=== PATIENT | female | born 1945 | race Two or more races ===

== ENCOUNTER → 2017-06-02 | Outpatient (CLI) | payer MEDICARE ==
[~2017-06-02] MED LIST: ALLOPURINOL300 MG PO; ATORVASTATIN CA10 MG PO; COREG25 MG PO; COREG3.125 MG PO; DIGOXIN125 MCG PO; DIGOXIN250 MCG PO; DIOVAN320 MG PO; FUROSEMIDE40 MG PO; LANTUS100 UNITS/ SQ; MOBIC7.5 MG PO; NEXIUM40 MG PO; NOVOLIN 70100 UNITS/ SQ; NOVOLOG100 UNITS/ SQ; PRAVASTATIN SOD20 MG PO; SPIRONOLACTONE25 MG PO; SUCRALFATE1 GM PO; VITAMIN D5000 UNIT PO; WARFARIN SODIU2.5 MG PO; WARFARIN SODIUM5 MG PO
== END ==
LOC: MAMMO 08:25
PROVIDERS: ATTEND Internal Medicine
DX: Z12.31 Encounter for screening mammogram for malignant neoplasm of breast (principal)
CPT/HCPCS: G0202

== ENCOUNTER → 2017-08-19 | Outpatient (CLI) | payer MEDICARE ==
--- NOTE | 2017-08-19 15:16 | Diagnostic Imaging Report ---
EXAM: DXA BONE DENSITY INDICATIONS: POSTMENOPAUSAL COMPARISON: None. FINDINGS: Left femur neck bone mineral density (BMD) (g/cm2):1.022 Femur T-score (standard deviation relative to young adult mean BMD): 1.3 Femur Z-score (standard deviation relative to age-matched control group):3.2 Proximal left femur total bone mineral density (BMD) (g/cm2):1.049 Femur T-score (standard deviation relative to young adult mean BMD): 0.6 Femur Z-score (standard deviation relative to age-matched control group):2.3 Lumbar bone mineral density (BMD) (g/cm2):1.445 Lumbar T-score (standard deviation relative to young adult mean BMD): 3.6 Lumbar Z-score (standard deviation relative to age-matched control group):5.9 Change since prior exam (%): Femur:Not applicable. Spine:Not applicable. Change since oldest prior exam (%): Femur:Not applicable. Spine:Not applicable. CONCLUSION: 1. Bone mineral density in the left femur is classified as normal. Fracture risk is low. 2. Bone mineral density in the spine is classified as normal. Fracture risk is low. 3. Moderate dextro scoliosis centered at L2-L3. World Health Organization Classification: *The Z-score is provided for informational purposes. The T-score is preferable for clinical decisions. When comparing exams, a change of >4% is considered statistically significant. SUGGESTED RECOMMENDATIONS: Normal \T\ Osteopenia:Consideration should be given to use of calcium supplementation, daily multiple vitamins and adequate exercise, as preventive measures against osteoporosis, if clinically indicated. Osteoporosis \T\ Severe Osteoporosis:In addition to the above, consideration should be given to medical therapy against osteoporosis, if clinically indicated. Dictated by: Seth Ceron M.D. on 08/19/2017 at 15:17 Electronically approved by: Seth Ceron M.D. on 08/19/2017 at 15:17
== END ==
LOC: DX 10:22
PROVIDERS: ATTEND Family Medicine
DX: Z13.820 Encounter for screening for osteoporosis (principal); Z78.0 Asymptomatic menopausal state
CPT/HCPCS: 77080

== ENCOUNTER → 2018-07-26 | Outpatient (CLI) | payer MEDICARE, OTHER | LOC: MAMMO 09:58 | PROVIDERS: ATTEND Family Medicine | DX: Z12.31 Encounter for screening mammogram for malignant neoplasm of breast (principal) | CPT/HCPCS: 77067 ==

== ENCOUNTER → 2018-09-20 | Outpatient (CLI) | payer MEDICARE, OTHER ==
--- NOTE | 2018-09-20 12:33 | Diagnostic Imaging Report ---
Exam: Right shoulder 2 views History: Pain Comparison: None. Findings: No acute, displaced fracture or dislocation. The humeral head projects appropriately adjacent to the glenoid. Advanced acromioclavicular joint space narrowing with undersurface osteophytosis. Moderate glenohumeral joint space narrowing with subchondral cystic changes of the glenoid. Soft tissues are unremarkable. Impression: No acute osseous abnormality. 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 Signed by: Dr. Saúl Alvarado M.D. on 09/20/2018 12:29 PM
== END ==
LOC: RAD 11:30
PROVIDERS: ATTEND Family Medicine
DX: M25.511 Pain in right shoulder (principal)